=== PATIENT | male | born 1970 | race Caucasian/White ===

== ENCOUNTER 2017-07-10 10:06 | Outpatient (CLI) | payer BC | END 2017-07-10 10:07 | disposition home or self-care (01) | LOC: BICRAD 10:06 | PROVIDERS: ATTEND Nurse Practitioner Family | DX: M54.2 Cervicalgia (principal) | CPT/HCPCS: 72050 ==

== ENCOUNTER 2018-08-04 11:18 | Outpatient (CLI) | payer BC | END 2018-08-04 11:19 | disposition home or self-care (01) | LOC: CTENTCT 11:18 | PROVIDERS: ATTEND Otolaryngology Plastic Surgery within the Head & Neck | DX: J32.9 Chronic sinusitis, unspecified (principal) | CPT/HCPCS: 70486 ==

== ENCOUNTER 2022-08-20 08:33 | Outpatient (CLI) | payer BC | END 2022-08-20 08:34 | disposition home or self-care (01) | LOC: LABBT 08:33 | PROVIDERS: ATTEND Surgery | DX: Z01.810 Encounter for preprocedural cardiovascular examination (principal); K46.9 Unspecified abdominal hernia without obstruction or gangrene | CPT/HCPCS: 93005; 93010 ==

== ENCOUNTER 2022-08-21 07:05 | Day surgery (SDC) | payer BC ==
[2022-08-20 08:57] VITALS: BMI 23.8
[2022-08-21] MEDS ORDERED: Bupivacaine/Epinephrine 0.25% 30 ML VIAL ONE (09:39)
[2022-08-21] MEDS ORDERED: fentaNYL PF 100 MCG/2 ML SYRINGE ONE (09:42)
[2022-08-21] MEDS ORDERED: CEFAZOLIN 2 GM VIAL ONE (09:51)
[2022-08-21] MEDS ORDERED: Sodium Chloride 0.9% 100 ML ONE (09:51)
[2022-08-21] MEDS ORDERED: Lidocaine 1% PF 5 ML VIAL ONE (10:07)
[2022-08-21] MEDS ORDERED: ePHEDrine Sulfate 50 MG/10 ML VIAL ONE (10:07)
[2022-08-21] MEDS ORDERED: Ondansetron PF 4 MG/2 ML Vial ONE (10:07)
[2022-08-21] MEDS ORDERED: Ketorolac Tromethamine 30 MG/ML VIAL ONE (10:07)
[2022-08-21] MEDS ORDERED: PROPOFOL 200 MG/20 ML VIAL ONE (10:07)
[2022-08-21] MEDS ORDERED: PHENYLEPHRINE-NS 100 MCG/ML 10 ML SYRINGE ONE (10:07)
[2022-08-21] MEDS ORDERED: NEOSTIGMINE 3 MG/3 ML SYR 3 MG/3 ML SYRINGE ONE (10:07)
[2022-08-21] MEDS ORDERED: Rocuronium Bromide 10 MG/ML (10ML VIAL) ONE (10:07)
[2022-08-21] MEDS ORDERED: Dexamethasone 20 MG/5 ML VIAL ONE (10:07)
[2022-08-21] MEDS ORDERED: GLYCOPYRROLATE/PF 0.2 MG/ML VIAL ONE (10:07)
[2022-08-21] MEDS ORDERED: Fentanyl 250 MCG/5 ML VIAL ONE (11:50)
[2022-08-21] MEDS ORDERED: HYDROmorphone 0.5 MG/0.5 ML SYRINGE ONE (12:10)
== END 2022-08-21 14:10 | disposition home or self-care (01) ==
LOC: SDC 07:05
PROVIDERS: ATTEND Surgery
PROC: 0YU54JZ Supplement Right Inguinal Region with Synthetic Substitute, Percutaneous Endoscopic Approach (ICD-10-PCS; principal; 2022-08-21)
DX: K40.90 Unilateral inguinal hernia, without obstruction or gangrene, not specified as recurrent (principal); J45.909 Unspecified asthma, uncomplicated; Z88.1 Allergy status to other antibiotic agents; Z88.8 Allergy status to other drugs, medicaments and biological substances; Z90.89 Acquired absence of other organs; Z79.899 Other long term (current) drug therapy
CPT/HCPCS: C1781; J1100; J1170; J1885; J2405; J2704; J3010; J3490

== ENCOUNTER 2022-12-17 08:04 | Outpatient (CLI) | payer BC | END 2022-12-17 08:05 | disposition home or self-care (01) | LOC: BICRAD 08:04 | PROVIDERS: ATTEND Internal Medicine | DX: M25.512 Pain in left shoulder (principal) ==

== ENCOUNTER 2023-07-21 16:24 | Outpatient (CLI) | payer BC | END 2023-07-21 16:25 | disposition home or self-care (01) | LOC: SCSRAD 16:24 | PROVIDERS: ATTEND Nurse Practitioner Family | DX: M25.571 Pain in right ankle and joints of right foot (principal) ==

== ENCOUNTER 2023-09-20 12:09 | Outpatient (CLI) | payer BC | END 2023-09-20 12:10 | disposition home or self-care (01) | LOC: SCSRAD 12:09 | PROVIDERS: ATTEND Nurse Practitioner Family | DX: R09.A2 Foreign body sensation, throat (principal) | CPT/HCPCS: 70360 ==